=== PATIENT | male | born 1990 | race Caucasian/White ===

== ENCOUNTER → 2018-04-23 14:04 | Outpatient (CLI) | payer BC, OTHER, MEDICAID, SELFPAY ==
--- NOTE | 2018-04-23 | DI.RAD.S_ITS ---
PROCEDURE: XR CHEST 2V INDICATIONS: SHORTNESS OF BREATH TECHNIQUE: 2 views of the chest were acquired. COMPARISON: None. FINDINGS: Surgical changes and devices: Right supraclavicular surgical clip.. Lungs and pleura: No pleural effusions or pneumothorax. Elevation of the right hemidiaphragm and there is right basilar airspace opacity. Left lung is clear Mediastinum: Mediastinal contours are normal. Heart size is normal. Bones and chest wall: No suspicious bony abnormalities. Soft tissues appear unremarkable. IMPRESSION: Right basilar atelectasis versus aspiration or pneumonia. Correlate clinically. Dictated by: Hiro Knight [facility] Interpreted: Willow Tran MD on 04/23/2018 at 14:44 Approved by: Willow Tran M.D. on 04/23/2018 at 16:54
== END ==
PROVIDERS: Family Provider Internal Medicine; PCP Internal Medicine; Visit Provider Physician Assistant
DX: R06.02 Shortness of breath (principal)
CPT/HCPCS: 71046

== ENCOUNTER → 2018-04-30 09:22 | Outpatient (CLI) | payer BC, SELFPAY ==
--- NOTE | 2018-04-30 | DI.RAD.S_ITS ---
PROCEDURE: FL FLUOROSCOPY <1HR COMPARISON: [facility], CR, XR CHEST 2V, 04/23/2018, 13:55. INDICATIONS: 28-year-old male with history of significant right brachial plexus injury with subsequent surgeries and residual right upper extremity weakness, demonstrating asymmetrically elevated right hemidiaphragm on chest films FINDINGS: With deep patient inspiration, there is asymmetrically decreased inferior motion of the right hemidiaphragm compared with the left hemidiaphragm. With rapid patient inspiration (sniff), there is paradoxical superior motion of the right hemidiaphragm. 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 Findings were discussed with the patient at the time of examination. Dictated by: Thomas Bentley M.D. on 04/30/2018 at 10:27 Approved by: Thomas Bentley M.D. on 04/30/2018 at 10:30
== END ==
PROVIDERS: Family Provider Internal Medicine; PCP Internal Medicine; Visit Provider Physician Assistant
DX: J98.6 Disorders of diaphragm (principal)
CPT/HCPCS: 76001

== ENCOUNTER → 2018-08-28 16:49 | Outpatient (CLI) | payer BC, OTHER, MEDICAID, SELFPAY ==
--- NOTE | 2018-08-28 | DI.RAD.S_ITS ---
PROCEDURE: XR CHEST 2V INDICATIONS: DIAPHRAGM DISORDER TECHNIQUE: 2 views of the chest were acquired. COMPARISON: [facility], CR, XR CHEST 2V, 04/23/2018, 13:55. FINDINGS: Surgical changes and devices: Surgical clips are again noted in right axilla.. Lungs and pleura: No pleural effusions or pneumothorax. Right basilar scarring/atelectasis is again seen. Elevation of right hemidiaphragm is again noted. Mediastinum: Mediastinal contours are normal. Heart size is normal. Bones and chest wall: No suspicious bony abnormalities. Soft tissues appear unremarkable. IMPRESSION: Stable appearing right basilar scarring/atelectasis. No focal infiltrate or gross pneumothorax. Persistent elevation of right hemidiaphragm. Dictated by: Brandon Urbano M.D. on 08/28/2018 at 17:18 Approved by: Brandon Urbano M.D. on 08/28/2018 at 17:19
== END ==
PROVIDERS: Family Provider Internal Medicine; PCP Internal Medicine; Visit Provider Internal Medicine
DX: J98.6 Disorders of diaphragm (principal)
CPT/HCPCS: 71046

== ENCOUNTER → 2018-09-02 12:47 | Outpatient (CLI) | payer BC, OTHER, MEDICAID, SELFPAY ==
[2018-09-02 15:09] LABS: Urine N gonorrhoeae NOT DETECTED
[2018-09-02 15:15] LABS: Urine Chlamydia NOT DETECTED
[2018-09-02 19:08] LABS: HIV 1 and 2 Antibody NEGATIVE (NEGATIVE)
== END ==
PROVIDERS: PCP Internal Medicine; Visit Provider Internal Medicine
DX: Z20.2 Contact with and (suspected) exposure to infections with a predominantly sexual mode of transmission (principal)
CPT/HCPCS: 86703; 87491; 87591

== ENCOUNTER → 2018-11-11 10:07 | Outpatient (CLI) | payer BC, OTHER, MEDICAID, SELFPAY ==
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
== END ==
PROVIDERS: Family Provider Internal Medicine; PCP Internal Medicine; Visit Provider Internal Medicine
DX: R59.0 Localized enlarged lymph nodes (principal)
CPT/HCPCS: 76705

== ENCOUNTER → 2018-11-13 12:28 | Outpatient (CLI) | payer BC, OTHER, MEDICAID, SELFPAY ==
[2018-11-13 12:50] LABS: Hematocrit 45.4 % (41-53); Hemoglobin 15.9 g/dL (13.5-17.5); Mean Corpuscular Hemoglobin 31.2 PG (26-34); Mean Corpuscular Volume 89.1 fL (80-100); Platelet Count 332 X10^3/uL (150-400); Red Cell Distribution Width 11.6 % (11.6-14.8); White Blood Cell Count 8.5 X10^3/uL (4.5-11.0)
[2018-11-13 13:16] LABS: Alanine Aminotransferase 24 IU/L (21-72); Albumin 4.6 g/dL (3.5-5.0); Albumin Globulin Ratio 1.4 (1.0-2.8); Alkaline Phosphatase 81 U/L (38-126); Aspartate Aminotransferase 23 IU/L (17-59); Bilirubin Total 0.5 mg/dL (0.2-1.3); Blood Urea Nitrogen 14 mg/dL (9-20); Calcium 9.3 mg/dL (8.4-10.2); Carbon Dioxide 25 mmol/L (22-32); Chloride 99 mmol/L (98-107); Estimated Glomerular Filt Rate > 60.0 mL/min (>60); Globulin 3.2 g/dL (1.7-4.1); Glucose 100 mg/dL (70-100); HEMOLYSIS 16 (0-50); Lactate Dehydrogenase 616 U/L (313-618); Potassium 4.2 mmol/L (3.4-5.1); Sodium 138 mmol/L (137-145); Total Protein 7.8 g/dL (6.3-8.2)
[2018-11-13 14:22] LABS: Neutrophils Absolute Manual 5865 /uL (3000-5900); Total Cells Counted 100
[2018-11-13 14:23] LABS: RBC Morphology Normal Morphology
[2018-11-13 14:31] LABS: Urine N gonorrhoeae NOT DETECTED
[2018-11-13 16:54] LABS: Urine Chlamydia NOT DETECTED
== END ==
PROVIDERS: Family Provider Internal Medicine; PCP Internal Medicine; Visit Provider Internal Medicine
DX: R59.0 Localized enlarged lymph nodes (principal)
CPT/HCPCS: 36415; 80053; 83615; 85025; 87491; 87591

== ENCOUNTER → 2018-12-01 12:00 | Outpatient (CLI) | payer BC, OTHER, MEDICAID, SELFPAY | PROVIDERS: Family Provider Internal Medicine; PCP Internal Medicine; Visit Provider Internal Medicine | DX: G40.909 Epilepsy, unspecified, not intractable, without status epilepticus (principal) | CPT/HCPCS: 97802 ==

== ENCOUNTER → 2018-12-08 09:46 | Outpatient (CLI) | payer BC, OTHER, MEDICAID, SELFPAY | PROVIDERS: Family Provider Internal Medicine; PCP Internal Medicine; Visit Provider Family Medicine | DX: T22.311A Burn of third degree of right forearm, initial encounter (principal); X15.0XXA Contact with hot stove (kitchen), initial encounter | CPT/HCPCS: 16020; 99203; 99213 ==

== ENCOUNTER → 2018-12-16 14:14 | Outpatient (CLI) | payer BC, OTHER, SELFPAY | PROVIDERS: Family Provider Internal Medicine; PCP Internal Medicine; Visit Provider Family Medicine | DX: T22.311A Burn of third degree of right forearm, initial encounter (principal) | CPT/HCPCS: 16020 ==

== ENCOUNTER → 2018-12-23 09:48 | Outpatient (CLI) | payer BC, OTHER, SELFPAY | PROVIDERS: Family Provider Internal Medicine; PCP Internal Medicine; Visit Provider Family Medicine | DX: T22.311A Burn of third degree of right forearm, initial encounter (principal) | CPT/HCPCS: 16020; 99213 ==

== ENCOUNTER → 2018-12-24 13:33 | Outpatient (CLI) | payer BC, OTHER, MEDICAID, SELFPAY ==
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
== END ==
PROVIDERS: PCP Internal Medicine; Visit Provider Internal Medicine
DX: T14.8XXA Other injury of unspecified body region, initial encounter (principal); T30.0 Burn of unspecified body region, unspecified degree; G40.909 Epilepsy, unspecified, not intractable, without status epilepticus
CPT/HCPCS: 97803

== ENCOUNTER → 2018-12-30 10:03 | Outpatient (CLI) | payer BC, OTHER, MEDICAID, SELFPAY | PROVIDERS: PCP Internal Medicine; Visit Provider Family Medicine | DX: T23.311A Burn of third degree of right thumb (nail), initial encounter (principal) | CPT/HCPCS: 99212; 99213 ==

== ENCOUNTER 2019-04-14 15:30 | Outpatient (RCR) | payer BC, OTHER, SELFPAY, MEDICAID ==
--- NOTE | 2018-03-24 13:43 | ST.OPTN ---
On March 24, 2018 our therapy services consisting of Speech, Occupational, and Physical therapy transitioned from [employer] electronic documentation system to a new [employer] electronic system. All documentation prior to March 24 can be found under [employer] saved data. From March 24 forward, all medical record documentation will be in [employer] 6.1.
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
== END 2019-04-22 10:42 | disposition home or self-care (01) ==
LOC: SP 15:30
PROVIDERS: Family Provider Internal Medicine; PCP Internal Medicine; Visit Provider Physical Medicine & Rehabilitation
DX: S06.9X0A Unspecified intracranial injury without loss of consciousness, initial encounter (principal); G83.23 Monoplegia of upper limb affecting right nondominant side
CPT/HCPCS: 92507; 97127

== ENCOUNTER → 2019-09-01 14:35 | Outpatient (ROUT) | payer BC, OTHER, MEDICAID, SELFPAY ==
[2019-09-01 14:55] LABS: Add Manual Diff / Slide Review NO; Basophils Absolute Auto 100 /uL (0-100); Eosinophils Absolute Auto 0 /uL (0-450); Eosinophils Percent Auto 0.6 % (2-4); Hematocrit 50.4 % (41-53); Lymphocytes Absolute Auto 2100 /uL (1100-4500); Lymphocytes Percent Auto 31.8 % (25-40); Mean Corpuscular HGB Conc 33.6 % (30-36); Mean Corpuscular Volume 92.1 fL (80-100); Monocytes Absolute Auto 500 /uL (0-900); Monocytes Percent Auto 6.9 % (3-14); Neutrophils Absolute Auto 4000 /uL (1500-7000); Neutrophils Percent Auto 59.7 % (50-75); Platelet Count 285 X10^3/uL (150-400); Red Blood Cell Count 5.48 X10^6/uL (4.5-5.9); Red Cell Distribution Width 12.7 % (11.6-14.8); White Blood Cell Count 6.6 X10^3/uL (4.5-11.0)
[2019-09-01 15:01] LABS: Alanine Aminotransferase 20 IU/L (21-72); Albumin 4.9 g/dL (3.5-5.0); Albumin Globulin Ratio 1.6 (1.0-2.8); Alkaline Phosphatase 77 U/L (38-126); Aspartate Aminotransferase 26 IU/L (17-59); BUN Creatinine Ratio 22.9 (6-22); Bilirubin Total 0.6 mg/dL (0.2-1.3); Blood Urea Nitrogen 16 mg/dL (9-20); Calcium 10.4 mg/dL (8.4-10.2); Carbon Dioxide 30 mmol/L (22-32); Chloride 97 mmol/L (98-107); Cholesterol 264 mg/dL (140-199); Estimated Glomerular Filt Rate > 60.0 mL/min (>60); Glucose 97 mg/dL (70-100); HDL Cholesterol 28 mg/dL (40-60); HEMOLYSIS 24 (0-50); Potassium 5.1 mmol/L (3.4-5.1); Sodium 142 mmol/L (137-145); Total Protein 7.9 g/dL (6.3-8.2); Triglycerides 435 mg/dL (35-150)
[2019-09-01 15:32] LABS: Thyroid Stimulating Hormone 5.83 uIU/mL (0.47-4.68)
== END ==
PROVIDERS: Family Provider Internal Medicine; PCP Internal Medicine; Visit Provider Internal Medicine
DX: Z00.00 Encounter for general adult medical examination without abnormal findings (principal); E03.9 Hypothyroidism, unspecified; G40.802 Other epilepsy, not intractable, without status epilepticus
CPT/HCPCS: 80053; 80061; 84443; 85025

== ENCOUNTER 2019-10-01 07:30 | Outpatient (RCR) | payer BC, OTHER, MEDICAID, SELFPAY ==
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
== END 2019-10-08 12:35 ==
LOC: OT 07:30
PROVIDERS: Family Provider Internal Medicine; PCP Internal Medicine; Visit Provider Internal Medicine
DX: G83.23 Monoplegia of upper limb affecting right nondominant side (principal)
CPT/HCPCS: 97032; 97110; 97112; 97140; 97166; 97530

== ENCOUNTER → 2019-10-08 10:26 | Outpatient (CLI) | payer BC, OTHER, MEDICAID, SELFPAY ==
[2019-10-08 12:54] LABS: Cholesterol 283 mg/dL (140-199); HDL Cholesterol 28 mg/dL (40-60); LDL Cholesterol Calculated 202 mg/dL (<100); Triglycerides 263 mg/dL (35-150)
== END ==
PROVIDERS: Family Provider Internal Medicine; PCP Internal Medicine; Visit Provider Internal Medicine
DX: E78.5 Hyperlipidemia, unspecified (principal)
CPT/HCPCS: 36415; 80061

== ENCOUNTER 2019-10-19 08:15 | Outpatient (RCR) | payer BC, OTHER, MEDICAID, SELFPAY ==
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
--- NOTE | 2019-08-09 14:25 | PT-OP ANOTE ---
Patient cancelled PT appointment
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
== END 2020-02-09 08:23 ==
LOC: PHYS 08:15
PROVIDERS: Family Provider Internal Medicine; PCP Internal Medicine; Visit Provider Internal Medicine
DX: S06.9X0A Unspecified intracranial injury without loss of consciousness, initial encounter (principal); G83.23 Monoplegia of upper limb affecting right nondominant side
CPT/HCPCS: 97014; 97032; 97110; 97112; 97113; 97140; 97163; 97530; 97535; G0283

== ENCOUNTER → 2019-12-07 10:20 | Outpatient (CLI) | payer BC, OTHER, MEDICAID, SELFPAY ==
[2019-12-07 11:53] LABS: Cholesterol 257 mg/dL (140-199); Glucose 101 mg/dL (70-100); HDL Cholesterol 28 mg/dL (40-60); LDL Cholesterol Calculated 195 mg/dL (<100); Triglycerides 170 mg/dL (35-150)
== END ==
PROVIDERS: PCP Internal Medicine; Visit Provider Internal Medicine
DX: E78.2 Mixed hyperlipidemia (principal)
CPT/HCPCS: 36415; 80061; 82947

== ENCOUNTER → 2019-12-09 15:24 | Outpatient (ROUT) | payer BC, OTHER, MEDICAID, SELFPAY ==
[2019-12-09 16:13] LABS: TSH w/ Reflex to FT4 5.19 uIU/mL (0.47-4.68)
[2019-12-09 16:43] LABS: Free T4, Direct Thyroxine 1.23 ng/dL (0.78-2.19)
== END ==
PROVIDERS: PCP Internal Medicine; Visit Provider Internal Medicine
DX: E03.9 Hypothyroidism, unspecified (principal)
CPT/HCPCS: 84439; 84443

== ENCOUNTER → 2020-02-29 10:50 | Outpatient (CLI) | payer BC, OTHER, MEDICAID, SELFPAY | PROVIDERS: PCP Internal Medicine; Visit Provider Physician Assistant | DX: J02.9 Acute pharyngitis, unspecified (principal) | CPT/HCPCS: 87070 ==

== ENCOUNTER → 2020-06-28 15:40 | Outpatient (CLI) | payer BC, OTHER, MEDICAID, SELFPAY ==
[2020-06-28 17:07] LABS: Alanine Aminotransferase 18 IU/L (<50); Albumin 4.7 g/dL (3.5-5.0); Alkaline Phosphatase 57 U/L (38-126); Aspartate Aminotransferase 27 IU/L (17-59); BUN Creatinine Ratio 21.3 (6-22); Bilirubin Total 0.5 mg/dL (0.2-1.3); Blood Urea Nitrogen 17 mg/dL (9-20); Calcium 9.7 mg/dL (8.4-10.2); Carbon Dioxide 26 mmol/L (22-32); Chloride 103 mmol/L (98-107); Estimated Glomerular Filt Rate > 60.0 mL/min (>60); Globulin 2.4 g/dL (1.7-4.1); Glucose 89 mg/dL (70-100); HEMOLYSIS < 15 (0-50); Potassium 4.2 mmol/L (3.4-5.1); Sodium 138 mmol/L (137-145); Total Protein 7.1 g/dL (6.3-8.2)
[2020-06-28 17:38] LABS: TSH w/ Reflex to FT4 3.67 uIU/mL (0.47-4.68)
== END ==
PROVIDERS: PCP Registered Nurse Diabetes Educator; Referring Provider Registered Nurse Diabetes Educator; Visit Provider Registered Nurse Diabetes Educator
DX: E03.9 Hypothyroidism, unspecified (principal); R56.9 Unspecified convulsions
CPT/HCPCS: 36415; 80053; 84443

== ENCOUNTER → 2020-10-16 08:28 | Outpatient (CLI) | payer BC, OTHER, MEDICAID, SELFPAY ==
[2020-10-16 09:54] LABS: COVID19 -Nasal RAPID Negative (Negative)
== END ==
PROVIDERS: PCP Registered Nurse Diabetes Educator; Visit Provider Physician Assistant
DX: Z11.59 Encounter for screening for other viral diseases (principal)
CPT/HCPCS: 87635

== ENCOUNTER 2020-10-17 06:45 | Day surgery (SDC) | payer BC, OTHER, MEDICAID, SELFPAY ==
[2020-10-13 15:26] VITALS: BMI 27.3
[2020-10-17] VITALS (7 sets, daily range): BP systolic 104–120; BP diastolic 73–87; PULSE 67–80; RESP 12–16; TEMP 36.3–36.9; O2SAT 94–98; BMI 26.6
--- NOTE | 2020-10-17 07:29 | SUR.OPER ---
Supine on padded OR bed, head on pillow, right arm secured on padded arm boards at <90 degrees abduction, left arm prepped into field supported on arm table, legs uncrossed, safety belt at thigh, tape over blanket over lower legs.
[2020-10-17] MEDS: LACTATED RINGERS 1,000 ML 42 ML IV (07:30)
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
--- NOTE | 2020-10-17 07:42 | PM.PREOP ---
Pre-operative Note COVID-19 COVID-19 status: Negative Result date/Date tested (Pos, Neg/Pending): 10/15/20 Interval Note History & Physical reviewed/Exam performed by Physician: Yes Changes to H&P: No
[2020-10-17] MEDS: BUPIVACAINE 0.5% W/ EPI (PF) 30 ML VIAL INJ (08:06)
--- NOTE | 2020-10-17 09:40 | PM.OP.1 ---
Operative Date/Time/Diagnoses Date of procedure: 10/17/20 Time of procedure: 08:00 Pre-op diagnosis: Left de Quervain Post-op diagnosis: same Procedure & Clinicians Procedure: First extensor compartment release Same procedure as scheduled: Yes Indications: Left de Quervain Surgeon: Sai Cuadra Click Yes if Unassisted: Yes Anesthesia Type: MAC +/- (Local with sedation) Operative Notes Findings: Irritation of the extensor tendons in the 1st extensor compartment signs of tenosynovitis Closure Type: primary Specimen(s): none sent Estimated Blood Loss (mL): 0 Blood products transfused: none Tourniquet time (min): 11 Procedure in detail: On date of service, patient was met in the holding area. Operative site was signed and witnessed by the OR staff. The surgery once again discussed with patient and any remaining questions they had were answered fully. Patient was taken back to the operating theater and placed on the operating table in the supine position. Great care taken to ensure that all bony prominences were properly padded. A well-padded tourniquet was placed up along the upper extremity. A timeout was performed to verify patient's name, procedure, and operative site. The upper extremity was then prepped and draped in the normal sterile fashion. An Esmarch was used to exsanguinate the limb and the tourniquet was turned up to 250 mm mercury. A 15 blade was used to incise the skin only starting at the tip of the radial styloid and proceeding proximally about 2 cm. Pickups and tenotomy scissors were used to dissect down through the fascial tissue. Great care taken to ensure that the branches of the superficial radial nerve identified and protected. This gave us good visualization of the extensor sheath. The extensor sheath was released on the radial aspect. Inspection of the APL and EPB tendons was performed. Any tenosynovitis was removed. As well as any accessory slips. The wound was copiously irrigated. The wound was then closed and the hand was then cleaned, dried, and dressed. Patient was placed into a thumb spica splint and was taken to PACU in stable condition. Complications: none Post-operative Condition: stable Disposition: PACU Plan for aftercare: Patient will follow our postoperative protocol for 1st extensor compartment release.
== END 2020-10-17 09:34 | disposition home or self-care (01) ==
PROVIDERS: PCP Registered Nurse Diabetes Educator; Referring Provider Orthopaedic Surgery; Visit Provider Orthopaedic Surgery
PROC: (CPT 25000; principal; 2020-10-17 07:45)
DX: M65.4 Radial styloid tenosynovitis [de Quervain] (principal); E03.9 Hypothyroidism, unspecified; G40.909 Epilepsy, unspecified, not intractable, without status epilepticus
CPT/HCPCS: 25000; J2250; J2704

== ENCOUNTER → 2020-12-12 09:57 | Outpatient (CLI) | payer BC, OTHER, SELFPAY ==
[2020-12-12 10:59] LABS: Cholesterol 216 mg/dL (140-199); HDL Cholesterol 32 mg/dL (40-60); LDL Cholesterol Calculated 111 mg/dL (<100); Triglycerides 363 mg/dL (35-150)
== END ==
PROVIDERS: PCP Registered Nurse Diabetes Educator; Referring Provider Registered Nurse Diabetes Educator; Visit Provider Registered Nurse Diabetes Educator
DX: E78.5 Hyperlipidemia, unspecified (principal)
CPT/HCPCS: 36415; 80061

== ENCOUNTER 2021-02-16 07:30 | Outpatient (RCR) | payer BC, OTHER, MEDICAID, SELFPAY ==
--- NOTE | 2021-01-05 09:31 | OT.OP.EVAL ---
Visit Care Team Role Provider Type BEE Baez Attending Provider Advanced Investigator Cash Shortage Primary Care Provider Referring Provider Specialty: Medical Address: [address] [place] [address], [id number] Email: [email or web address] Occupational Therapy Initial Evaluation OT Outpatient Adult Evaluation Start: 01/05/21 07:36 Freq: Status: Active Protocol: Document 01/05/21 07:36 AMS (Rec: 01/05/21 08:00 AMS [id number]) General Information Visit Start Time 07:30 Visit Stop Time 08:15 Total Visit Minutes 45 Plan of Care Dates 01/05/21-02/16/21 Treatment Setting Outpatient Care Note Type Initial Evaluation Goals Treatment Education. Mcc Goals 1. Patient will be modified independent with distal left upper extremity program utilizing provided written and visual instructions from therapist. 2. Patient will be able to actively participate in meaningful activities secondary to reduction in pain /discomfort of distal left upper extremity; this will be evidenced by patient indicating 2 or less out of 10 relative to distal left upper extremity pain on Pain Assessment Grid. Assessment/Plan Treatment Assessment Carmelo is a 30 year-old left hand dominant male referred to outpatient OT secondary L DeQuervain's surgery by his primary care physician Quinn Mcgowan MD. Carmelo reported that he had surgery on October 17 for L DeQuervain 's. Surgery was performed by Dr. Cuadra. He stated that cast was removed October 30 and that he was evaluated by [facility] on October 31. Unfortunately, Carmelo's insurance is no longer being covered by [facility]. At time of evaluation, he was instructed to wear brace 2 to 4 weeks and complete finger taps and finger slides, thumb over top of index finger w/ UD stretch. He has had no follow-up therapy since October 31, 2020. He will be seeing Dr. Cuadra January 09 for follow-up appointment. Patient Goals: Address pain/ discomfort; improve upon functional abilities. Evaluation Findings: Carmelo was not wearing post-surgical brace at time of evaluation. Mild swelling at site of surgery. Mild scar tissue. Some numbness at site of scar; no pain discomfort w/ touch. Denied infection at site of surgery. 0-60 degrees active L wrist flexion. 0-72 degrees active L wrist extension w/ mild discomfort. 0-[address] w/ mild discomfort . 0-30 degrees of wrist UD. 0- 60 degrees L thumb abduction. Tightness of L thumb adductor. Indicated 5 out of 10 on Pain Assessment Grid relative to L thumb. QuickDash UE Outcome Measure completed by Carmelo; he obtained a score of 47.7. Outpatient OT would likely be beneficial given continued c/o pain/discomfort and decreased functional abilities with dominant hand. Comment 6 weeks Treatment Frequency Once a Week Therapeutic Contents Active Range of Motion, Adaptive Equipment Education, Client Education,Home Exercise Program,Joint Protection, Manual Therapy,Self-Care, Stretching/Flexibility Activities,Therapeutic Activities,Therapeutic Exercises,Modalities Modalities As Needed,As Prescribed Additional Types of Modalities Ultrasound, paraffin, heat, cold
--- NOTE | 2021-01-05 10:22 | OT.OP.TRT ---
Visit Care Team Role Provider Type BEE Baez Attending Provider Advanced Regulatory Law Specialist Primary Care Provider Referring Provider Specialty: Medical Address: [address] [place] [address], [id number] Email: [email or web address] Occupational Therapy Treatment Note OT Outpatient Treatment Note - Adult Start: 01/05/21 07:36 Freq: Status: Active Protocol: Document 01/05/21 10:20 AMS (Rec: 01/05/21 10:22 AMS [id number]) OT Outpatient Adult Treatment Note Visit Information Plan of Care Dates 01/05/21-02/16/21 Setting Treatment Setting Outpatient Care Visit Type Note Type Administrative Note - Subjective Observations Faxed orthopedic surgeon re: request for pertinent medical records relative to DeQuervain 's surgery; included signed consent for exchange of information completed by patient. Therapist to follow- up as appropriate. - - - -
--- NOTE | 2021-01-12 15:30 | OT.OP.TRT ---
Visit Care Team Role Provider Type BEE Baez Attending Provider Advanced Clinical Program Manager Primary Care Provider Referring Provider Specialty: Medical Address: [address] [place] [address], [facility] Email: [email or web address] Occupational Therapy Treatment Note OT Outpatient Treatment Note - Adult Start: 01/05/21 07:36 Freq: Status: Active Protocol: Document 01/12/21 15:09 AMS (Rec: 01/12/21 15:23 AMS [id number]) OT Outpatient Adult Treatment Note Session Time Visit Start Time 07:40 Visit Stop Time 08:20 Total Visit Minutes 40 Visit Information Plan of Care Dates 01/05/21-02/16/21 Setting Treatment Setting Outpatient Care Visit Type Note Type Treatment Note General Information General Information Carmelo is a 30 year-old left hand dominant male referred to outpatient OT secondary L DeQuervain's surgery by his primary care physician Eloise Mcgowan MD. Carmelo reported that he had surgery on October 17 for L DeQuervain 's. Surgery was performed by Dr. Cuadra. He stated that cast was removed October 30 and that he was evaluated by IR on October 31. Unfortunately, Carmelo's insurance is no longer being covered by [facility]. At time of evaluation, he was instructed to wear brace 2 to 4 weeks and complete finger taps and finger slides, thumb over top of index finger w/ UD stretch. He has had no follow-up therapy since October 31, 2020. He will be seeing Dr. Cuadra January 09 for follow-up appointment. - Subjective Identification Type Name Identification Reconciled With Medical Record Observations I think that I had the papers from the doctor on the dash of my car. It has been a long week. I have been taking the oral steroids that were recommended per Carmelo. Medical Documentation was reviewed post treatment session d/t time of receipt. Follow-up appointment with Dr. Cuadra on 01/09/21 indicated the following: Patient with signs of possible compression of superficial branches of the radial nerve. No signs of recurring DeQuervain's. Recommend thumb spica bracing at nighttime as well as hand therapy. Recommendation for short course of oral steroids to address any swelling and irritation at wrist level. - Objective Objective Measurements Impaired cognition; impaired executive function abilities. Please refer to below for progress towards meeting established OT goals. 06/17/19= (+) ability to stabilize wood block seated at TT w/ R hand positioned on top for L hand manipulation. Residential Substance Abuse Counselor Goals 1. Patient will be modified independent with distal left upper extremity program utilizing provided written and visual instructions from therapist. 2. Patient will be able to actively participate in meaningful activities secondary to reduction in pain /discomfort of distal left upper extremity; this will be evidenced by patient indicating 2 or less out of 10 relative to distal left upper extremity pain on Pain Assessment Grid. - Treatment 2 Descriptor Manual treatment. 1 Descriptor Ultrasound. 20% duty cycle. 2. 0 w/cm2 to site of swelling. Skin intact pre- and post- treatment. Exercises 10 Descriptor Wrist UD/RD Forearm supination w/ proximal blocking w/ UD Forearm pronation w/ proximal blocking w/ RD (trace) Side Right Body Position Sitting Sets 1 Repetitions 10 - Assessment Assessment of Improvement Medical Documentation was reviewed post treatment session d/t time of receipt. Follow-up appointment with Dr. Cuadra on 01/09/21 indicated the following: Patient with signs of possible compression of superficial branches of the radial nerve. No signs of recurring DeQuervain's. Recommend thumb spica bracing at nighttime as well as hand therapy. Recommendation for short course of oral steroids to address any swelling and irritation at wrist level. At time of treatment session, patient denied use of brace. ( +) report of taking medication as prescribed by Dr. Cuadra. (+) swelling w/ positive reduction post- ultrasound modality application. - Plan Therapy Recommendations Continue with Current Program, Advance per Rehabilitation Protocol
--- NOTE | 2021-01-19 11:40 | OT.OP.TRT ---
Visit Care Team Role Provider Type BEE Baez Attending Provider Advanced Systems Security Consultant Primary Care Provider Referring Provider Specialty: Medical Address: [address] [place] [address], [facility] Email: [email or web address] Occupational Therapy Treatment Note OT Outpatient Treatment Note - Adult Start: 01/05/21 07:36 Freq: Status: Active Protocol: Document 01/19/21 11:23 AMS (Rec: 01/19/21 11:40 AMS [id number]) OT Outpatient Adult Treatment Note Session Time Visit Start Time 07:35 Visit Stop Time 08:15 Total Visit Minutes 40 Visit Information Plan of Care Dates 01/05/21-02/16/21 Setting Treatment Setting Outpatient Care Visit Type Note Type Treatment Note General Information General Information Carmelo is a 30 year-old left hand dominant male referred to outpatient OT secondary L DeQuervain's surgery by his primary care physician Eloise Mcgowan MD. Carmelo reported that he had surgery on October 17 for L DeQuervain 's. Surgery was performed by Dr. Cuadra. He stated that cast was removed October 30 and that he was evaluated by [facility] on October 31. Unfortunately, Carmelo's insurance is no longer being covered by [facility]. At time of evaluation, he was instructed to wear brace 2 to 4 weeks and complete finger taps and finger slides, thumb over top of index finger w/ UD stretch. He has had no follow-up therapy since October 31, 2020. He will be seeing Dr. Cuadra January 09 for follow-up appointment. - Subjective Identification Type Name Identification Reconciled With Medical Record Observations I did take the medication for the duration of 6 days. It has started to feel better per Carmelo. No I have not been wearing the splint at night per Carmelo. Medical Documentation was reviewed post treatment session d/t time of receipt. Follow-up appointment with Dr. Cuadra on 01/09/21 indicated the following: Patient with signs of possible compression of superficial branches of the radial nerve. No signs of recurring DeQuervain's. Recommend thumb spica bracing at nighttime as well as hand therapy. Recommendation for short course of oral steroids to address any swelling and irritation at wrist level. - Objective Objective Measurements Please refer to below for progress towards meeting established OT goals. Jewelry Facer Goals 1. Patient will be modified independent with distal left upper extremity program utilizing provided written and visual instructions from therapist. 2. Patient will be able to actively participate in meaningful activities secondary to reduction in pain /discomfort of distal left upper extremity; this will be evidenced by patient indicating 2 or less out of 10 relative to distal left upper extremity pain on Pain Assessment Grid. - Treatment 2 Descriptor Manual treatment. 1 Descriptor Ultrasound. 20% duty cycle. 2. 0 w/cm2 to site of swelling. Treatment duration x 8 minutes . Skin intact pre- and post- treatment. - Assessment Assessment of Improvement (-) use of nighttime brace; reviewed recommendations from referring physician. Report of reduced pain/discomfort since time of previous treatment session. Mild swelling. Introduced radial nerve glide; recommended use of ice at home for swelling management. Some progress is being made. - Plan Therapy Recommendations Continue with Current Program, Advance per Rehabilitation Protocol
--- NOTE | 2021-01-26 15:30 | OT.OP.TRT ---
Visit Care Team Role Provider Type BEE Baez Attending Provider Advanced Overhead Crane Inspector Primary Care Provider Referring Provider Specialty: Medical Address: [address] [place] [address], [facility] Email: [email or web address] Occupational Therapy Treatment Note OT Outpatient Treatment Note - Adult Start: 01/05/21 07:36 Freq: Status: Active Protocol: Document 01/26/21 15:30 AMS (Rec: 01/29/21 10:30 AMS [id number]) OT Outpatient Adult Treatment Note Session Time Visit Start Time 07:35 Visit Stop Time 08:15 Total Visit Minutes 40 Visit Information Plan of Care Dates 01/05/21-02/16/21 Setting Treatment Setting Outpatient Care Visit Type Note Type Treatment Note General Information General Information Carmelo is a 30 year-old left hand dominant male referred to outpatient OT secondary L DeQuervain's surgery by his primary care physician Eloise Mcgowan MD. Carmelo reported that he had surgery on October 17 for L DeQuervain 's. Surgery was performed by Dr. Cuadra. He stated that cast was removed October 30 and that he was evaluated by IR on October 31. Unfortunately, Carmelo's insurance is no longer being covered by [facility]. At time of evaluation, he was instructed to wear brace 2 to 4 weeks and complete finger taps and finger slides, thumb over top of index finger w/ UD stretch. He has had no follow-up therapy since October 31, 2020. He will be seeing Dr. Cuadra January 09 for follow-up appointment. - Subjective Identification Type Name Identification Reconciled With Medical Record Observations I still haven't found the brace to wear at night per Carmelo. I cleaned up my kitchen but it wasn't in there . Medical Documentation was reviewed post treatment session d/t time of receipt. Follow-up appointment with Dr. Cuadra on 01/09/21 indicated the following: Patient with signs of possible compression of superficial branches of the radial nerve. No signs of recurring DeQuervain's. Recommend thumb spica bracing at nighttime as well as hand therapy. Recommendation for short course of oral steroids to address any swelling and irritation at wrist level. Patient/Caregiver Compliance with Home Good Exercise Program - Objective Objective Measurements Please refer to below for progress towards meeting established OT goals. Halfway Goals 1. Patient will be modified independent with distal left upper extremity program utilizing provided written and visual instructions from therapist. 2. Patient will be able to actively participate in meaningful activities secondary to reduction in pain /discomfort of distal left upper extremity; this will be evidenced by patient indicating 2 or less out of 10 relative to distal left upper extremity pain on Pain Assessment Grid. - Treatment 2 Descriptor Manual treatment. 1 Descriptor Ultrasound. 20% duty cycle. 2. 0 w/cm2 to site of swelling. Treatment duration x 8 minutes . Skin intact pre- and post- treatment. - Assessment Assessment of Improvement Report of reduction of pain symptoms since beginning of treatment. Has still not found night brace for distal R UE in the home; actively searching in the home for brace. Discussed insurance limitations; with patient feedback reduced frequency of treatment based on insurance limitations and feedback from patient. Instructed in basic wrist stretches utilizing table in conjunction with other exercises (hand, and nerve glide). Based on reduction of symptoms progress is being made; will need to monitor for exacerbation of symptoms at this time. Recommend transitioning to [facility] as able. - Plan Additional Therapy Recommendations Reduce frequency of treatment d/t insurance limitations/ progress
--- NOTE | 2021-02-16 08:20 | OT.OP.DC ---
Visit Care Team Role Provider Type BEE Baez Attending Provider Advanced [employer] R12 Developer Primary Care Provider Referring Provider Address: [address] [place] [address], [id number] Email: [email or web address] Outpatient OT Outpatient Adult Evaluation Start: 01/05/21 07:36 Freq: Status: Active Protocol: Document 01/05/21 07:36 AMS (Rec: 01/05/21 08:00 AMS [id number]) General Information Session Time Visit Start Time 07:30 Visit Stop Time 08:15 Total Visit Minutes 45 Visit Information Plan of Care Dates 01/05/21-02/16/21 Setting Treatment Setting Outpatient Care Visit Type Note Type Initial Evaluation Goals Treatment Treatment Education. House Registry Rn Goals House Registry Rn Goals 1. Patient will be modified independent with distal left upper extremity program utilizing provided written and visual instructions from therapist. 2. Patient will be able to actively participate in meaningful activities secondary to reduction in pain /discomfort of distal left upper extremity; this will be evidenced by patient indicating 2 or less out of 10 relative to distal left upper extremity pain on Pain Assessment Grid. Assessment/Plan Assessment Treatment Assessment Carmelo is a 30 year-old left hand dominant male referred to outpatient OT secondary L DeQuervain's surgery by his primary care physician Quinn Mcgowan MD. Carmelo reported that he had surgery on October 17 for L DeQuervain 's. Surgery was performed by Dr. Cuadra. He stated that cast was removed October 30 and that he was evaluated by [facility] on October 31. Unfortunately, [employer] insurance is no longer being covered by [facility]. At time of evaluation, he was instructed to wear brace 2 to 4 weeks and complete finger taps and finger slides, thumb over top of index finger w/ UD stretch. He has had no follow-up therapy since October 31, 2020. He will be seeing Dr. Cuadra January 09 for follow-up appointment. Patient Goals: Address pain/ discomfort; improve upon functional abilities. Evaluation Findings: Carmelo was not wearing post-surgical brace at time of evaluation. Mild swelling at site of surgery. Mild scar tissue. Some numbness at site of scar; no pain discomfort w/ touch. Denied infection at site of surgery. 0-60 degrees active L wrist flexion. 0-72 degrees active L wrist extension w/ mild discomfort. 0-[address] w/ mild discomfort . 0-30 degrees of wrist UD. 0- 60 degrees L thumb abduction. Tightness of L thumb adductor. Indicated 5 out of 10 on Pain Assessment Grid relative to L thumb. QuickD[employer] UE Outcome Measure completed by Carmelo; he obtained a score of 47.7. Outpatient OT would likely be beneficial given continued c/o pain/discomfort and decreased functional abilities with dominant hand. Plan Comment 6 weeks Treatment Frequency Once a Week Therapeutic Contents Active Range of Motion, Adaptive Equipment Education, Client Education,Home Exercise Program,Joint Protection, Manual Therapy,Self-Care, Stretching/Flexibility Activities,Therapeutic Activities,Therapeutic Exercises,Modalities Modalities As Needed,As Prescribed Additional Types of Modalities Ultrasound, paraffin, heat, cold Sensory Assessment Sensory Profile2 Functional Wrist/Hand Scan Hand Side OT Outpatient Treatment Note - Adult Start: 01/05/21 07:36 Freq: Status: Active Protocol: Document 02/16/21 07:33 AMS (Rec: 02/16/21 08:19 AMS [id number]) OT Outpatient Adult Treatment Note Session Time Visit Start Time 07:30 Visit Stop Time 08:10 Total Visit Minutes 40 Visit Information Plan of Care Dates 01/05/21-02/16/21 Setting Treatment Setting Outpatient Care Visit Type Note Type Treatment Note General Information General Information Carmelo is a 30 year-old left hand dominant male referred to outpatient OT secondary L DeQuervain's surgery by his primary care physician Quinn Mcgowan MD. Carmelo reported that he had surgery on October 17 for L DeQuervain 's. Surgery was performed by Dr. Cuadra. He stated that cast was removed October 30 and that he was evaluated by [facility] on October 31. Unfortunately, Carmelo's insurance is no longer being covered by [facility]. At time of evaluation, he was instructed to wear brace 2 to 4 weeks and complete finger taps and finger slides, thumb over top of index finger w/ UD stretch. He has had no follow-up therapy since October 31, 2020. He will be seeing Dr. Cuadra January 09 for follow-up appointment. - Subjective Identification Type Name Identification Reconciled With Medical Record Observations Carmelo completed Pain Assessment Grid; he indicated 1 out of 10 on Pain Scale relative to distal L UE pain. Medical Documentation was reviewed post treatment session d/t time of receipt. Follow-up appointment with Dr. Cuadra on 01/09/21 indicated the following: Patient with signs of possible compression of superficial branches of the radial nerve. No signs of recurring DeQuervain's. Recommend thumb spica bracing at nighttime as well as hand therapy. Recommendation for short course of oral steroids to address any swelling and irritation at wrist level. Patient/Caregiver Compliance with Home Good Exercise Program - Objective Objective Measurements Please refer to below for progress towards meeting established OT goals. Long-Term Goals ALL GOALS MET 02/16/21 Patient will be modified independent with distal left upper extremity program utilizing provided written and visual instructions from therapist. Patient will be able to actively participate in meaningful activities secondary to reduction in pain /discomfort of distal left upper extremity; this will be evidenced by patient indicating 2 or less out of 10 relative to distal left upper extremity pain on Pain Assessment Grid. - Treatment 2 Descriptor Manual treatment. 1 Descriptor Ultrasound. 20% duty cycle. 2. 0 w/cm2 to site of swelling. Treatment duration x 8 minutes . Skin intact pre- and post- treatment. - Assessment Assessment of Improvement Carmelo has met all goals for outpatient OT. He is modified independent with execution of home exercise program; he is utilizing compression sleeve to assist w/ swelling management. He is able to execute distal UE ROM exercises without cueing. Thus , recommend d/c to [facility] at this time. - Plan Therapy Recommendations Discharge from Occupational Therapy Additional Therapy Recommendations Reduce frequency of treatment d/t insurance limitations/ progress
== END 2021-02-16 10:03 | disposition home or self-care (01) ==
LOC: OT 07:30
PROVIDERS: PCP Registered Nurse Diabetes Educator; Referring Provider Registered Nurse Diabetes Educator; Visit Provider Registered Nurse Diabetes Educator
DX: M65.4 Radial styloid tenosynovitis [de Quervain] (principal); R53.1 Weakness
CPT/HCPCS: 97035; 97110; 97140; 97165

== ENCOUNTER → 2021-05-16 11:31 | Outpatient (CLI) | payer BC, OTHER, MEDICAID, SELFPAY ==
[2021-05-16 12:15] LABS: Hematocrit 45.5 % (41-53); Hemoglobin 15.7 g/dL (13.5-17.5); Mean Corpuscular HGB Conc 34.4 % (30-36); Mean Corpuscular Hemoglobin 31.6 PG (26-34); Mean Corpuscular Volume 91.7 fL (80-100); Platelet Count 239 X10^3/uL (150-400); Red Blood Cell Count 4.96 X10^6/uL (4.5-5.9); Red Cell Distribution Width 12.2 % (11.6-14.8)
[2021-05-16 12:30] LABS: Alanine Aminotransferase 33 IU/L (<50); Albumin 4.9 g/dL (3.5-5.0); Albumin Globulin Ratio 1.5 (1.0-2.8); Alkaline Phosphatase 63 U/L (38-126); Aspartate Aminotransferase 39 IU/L (17-59); BUN Creatinine Ratio 17.5 (6-22); Bilirubin Total 0.6 mg/dL (0.2-1.3); Blood Urea Nitrogen 14 mg/dL (9-20); Carbon Dioxide 29 mmol/L (22-32); Chloride 101 mmol/L (98-107); Estimated Glomerular Filt Rate > 60.0 mL/min (>60); Globulin 3.3 g/dL (1.7-4.1); Glucose 94 mg/dL (70-100); HEMOLYSIS 33 (0-50); Potassium 4.7 mmol/L (3.4-5.1); Sodium 139 mmol/L (137-145); Total Protein 8.2 g/dL (6.3-8.2)
[2021-05-16 13:01] LABS: TSH w/ Reflex to FT4 7.46 uIU/mL (0.47-4.68)
[2021-05-16 19:20] LABS: Free T4, Direct Thyroxine 1.07 ng/dL (0.78-2.19)
== END ==
PROVIDERS: PCP Registered Nurse Diabetes Educator; Referring Provider Registered Nurse Diabetes Educator; Visit Provider Registered Nurse Diabetes Educator
DX: E03.9 Hypothyroidism, unspecified (principal); R56.9 Unspecified convulsions
CPT/HCPCS: 36415; 80053; 84439; 84443; 85027

== ENCOUNTER 2021-05-30 09:00 | Outpatient (RCR) | payer BC, OTHER, MEDICAID, SELFPAY ==
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
--- NOTE | 2021-03-07 12:56 | PT.OPPOC ---
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 Plan Of Care PT-OP-T Assessment and Plan Start: 12/20/20 11:25 Freq: Status: Active Protocol: Document 03/07/21 09:45 AW (Rec: 03/07/21 09:48 AW [id number]) Physical Therapy Assessment Goals Seven Impairment need for better brace right UE Customer Accounts Advisor Goal (LTG) Patient to obtain new right UE brace to allow his right arm to be in functional position and available to use with ADL' s as able. 03/07/21 - Considering hand/ wrist splint but has not purchased yet. LTG Duration 3 months - 06/13/21 Six Impairment Decreased ability to use compensatory motion for functional use Customer Accounts Advisor Goal (LTG) Patient will implement functional compensatory strategies for ADL's. LTG Duration 3 months - 06/13/21 Four Impairment Lacking HEP Short Term Goal (STG) Instruct in HEP for right UE ROM and strengthening for support of therapy services provided in clinic STG Duration 01/31/21 Customer Accounts Advisor Goal (LTG) Patient to be independent in and compliant with exercise program 03/07/21 - GOAL MET, incorporating exercises into daily routine. LTG Duration 03/14/21 Two Impairment ROM right shoulder Short Term Goal (STG) Improve right shoulder ROM all motions by 50% (goal progress ) STG Duration 01/31/21 Customer Accounts Advisor Goal (LTG) Improve right shoulder ROM to WFL 03/07/21: abd 90 ff 115 LTG Duration 3 months - 06/13/21 One Impairment Strength/Function Short Term Goal (STG) Facilitate active movement of right UE musculature STG Duration 01/31/21 Longterm Goal (LTG) Patient able to use right UE for some gross functional tasks 03/07/21 - PROGRESSING LTG Duration 3 months - 06/13/21 Progress Towards Goals Progress Towards Goals Progressing Toward Goals,Slow Progress - Other Progress Comments Pt has slowly increased compliance with HEP and now presents with his who will be able to further assist with home exercise. He has made some gains with ROM, scapular control, and functional movements with compensation. He is a good candidate for continued therapy for progression toward goals. Assessment Summary Assessment Pt's participated in training at this session with emphasis on assisting to control humeral translation and to provide appropriate cues for shoulder/scapular posture. She was able to assist with forearm plank in modified plantigrade position. She will attend at least one additional session for further training. Physical Therapy Plan Frequency and Duration Frequency of Treatment 2x/Week Duration of Treatment 3 months Plan of Care Start Date 03/14/21 Plan of Care End Date 06/13/21 Therapeutic Interventions Therapeutic Interventions Home Exercise Program,Manual Therapy,Neuromuscular Re- education,Patient/Caregiver Education,Self-Care/Home Management,Soft Tissue Mobilization,Therapeutic Exercises Modalities Electric Stimulation Other Therapeutic Interventions functional e-stim Next Visit Focus/Plan Next Note Type Treatment Note Next Visit Plan Use mirror for exercises so pt can begin to self correct with less tactile cues. Begin caregiver training with on Wednesdays. Continue PROM RUE all planes and following POC for strengthening R shld Plan of Care Dates Plan of Care Start Date 03/14/21 Plan of Care End Date 06/13/21 Electronically Signed by: Krystle Thurman PT 03/07/21 [id number] Please Sign and Return: I have reviewed this Plan of Care and certify that the skilled therapy services above are required to meet the patient?s needs. Physician Signature Date Printed Name and Credentials Clinical Instructor Signature Printed Name and Credentials
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
== END 2021-05-30 12:36 | disposition home or self-care (01) ==
LOC: PHYS 09:00
PROVIDERS: Family Provider Registered Nurse Diabetes Educator; PCP Registered Nurse Diabetes Educator; Referring Provider Registered Nurse Diabetes Educator; Visit Provider Registered Nurse Diabetes Educator
DX: G83.21 Monoplegia of upper limb affecting right dominant side (principal)
CPT/HCPCS: 97110; 97112; 97140; 97163; 97530; 97535; 97760

== ENCOUNTER → 2021-06-19 17:34 | Outpatient (CLI) | payer BC, OTHER, MEDICAID, SELFPAY ==
--- NOTE | 2021-06-19 | DI.MRI.S_ITS ---
PROCEDURE: MR WRIST LT WO CON INDICATIONS: Radial styloid tenosynovitis TECHNIQUE: Noncontrast coronal proton density fast spin echo and T2 fast spin echo with fat saturation; coronal 3-D gradient echo, axial T1 spin echo and T2 fast spin echo with fat saturation, sagittal T1 spin echo through the wrist. COMPARISON: None. FINDINGS: Image quality: Excellent. Bones and cartilage: The carpal bones are normally aligned. No bone marrow contusions or fractures. No evidence for avascular necrosis. Overlying cartilage surfaces appear normal. Carpal ligaments: The scapholunate and lunotriquetral ligaments appear intact. In the absence of intra-articular contrast, the extrinsic carpal ligaments are not well identified. On sagittal images, the pisohamate ligament appears intact. Triangular fibrocartilage complex: The triangular fibrocartilage appears intact. The adjacent meniscal homolog appears normal in the absence of intra-articular contrast. The extensor carpi ulnaris tendon is normal in location and morphology. Tendons and soft tissues: There is thickening of the extensor pollicis brevis and adductor pollicis longus tendons at the level of distal radius/radial styloid with mild surrounding soft tissue edema suggestive of tendinosis/low-grade partial-thickness tear. No significant fluid distension of the tendon sheath is seen. The carpal tunnel structures appear normal, including the median nerve. The ulnar nerve appears normal within Guyon's canal. Rest of the extensor tendon compartments demonstrate normal morphology, without pathologic tendon sheath fluid. There is a 6 x 6 x 7 mm cystic area involving volar and ulnar aspect of wrist just distal to the ulnar styloid and is suggestive of a small ganglion cyst. IMPRESSION: 1. Tendinosis and low-grade intrasubstance partial-thickness tear involving extensor pollicis brevis and adductor pollicis longus tendons at the level of distal radius/radial styloid. No significant fluid distension of the tendon sheath. Rest of the extensor and flexor tendons are grossly intact. 2. Intrinsic and extrinsic wrist ligaments are intact. 3. Triangular fibrocartilage complex is within normal limits. 4. Suggestion of a 6 x 6 x 7 mm ganglion cyst in volar and ulnar aspect of wrist soft tissue just distal to ulnar styloid tip. Dictated by: Brandon Urbano M.D. on 06/20/2021 at 9:00 Approved by: Brandon Urbano M.D. on 06/20/2021 at 9:04
== END ==
PROVIDERS: PCP Registered Nurse Diabetes Educator; Referring Provider Orthopaedic Surgery; Visit Provider Orthopaedic Surgery
DX: M65.4 Radial styloid tenosynovitis [de Quervain] (principal); S56.512A Strain of other extensor muscle, fascia and tendon at forearm level, left arm, initial encounter
CPT/HCPCS: 73221

== ENCOUNTER → 2021-08-07 14:18 | Outpatient (CLI) | payer BC, OTHER, MEDICAID, SELFPAY | PROVIDERS: PCP Registered Nurse Diabetes Educator; Referring Provider Registered Nurse Diabetes Educator; Visit Provider Registered Nurse Diabetes Educator | DX: E03.9 Hypothyroidism, unspecified (principal) | CPT/HCPCS: 36415; 84439; 84443 ==

== ENCOUNTER → 2021-10-25 14:32 | Outpatient (CLI) | payer BC, OTHER, MEDICAID, SELFPAY ==
[2021-10-25 16:43] LABS: TSH w/ Reflex to FT4 8.28 uIU/mL (0.47-4.68)
[2021-10-25 17:13] LABS: Free T4, Direct Thyroxine 0.96 ng/dL (0.78-2.19)
== END ==
PROVIDERS: PCP Registered Nurse Diabetes Educator; Referring Provider Registered Nurse Diabetes Educator; Visit Provider Registered Nurse Diabetes Educator
DX: E03.9 Hypothyroidism, unspecified (principal)
CPT/HCPCS: 36415; 84439; 84443

== ENCOUNTER → 2021-12-14 11:49 | Outpatient (CLI) | payer MEDICARE, BC, MEDICAID, SELFPAY ==
[2021-12-14 13:04] LABS: TSH w/ Reflex to FT4 7.38 uIU/mL (0.47-4.68)
[2021-12-14 14:34] LABS: Free T4, Direct Thyroxine 0.86 ng/dL (0.78-2.19)
== END ==
PROVIDERS: PCP Registered Nurse Diabetes Educator; Referring Provider Registered Nurse Diabetes Educator; Visit Provider Registered Nurse Diabetes Educator
DX: E03.9 Hypothyroidism, unspecified (principal)
CPT/HCPCS: 36415; 84439; 84443

== ENCOUNTER → 2022-02-28 14:31 | Outpatient (CLI) | payer MEDICARE, BC, MEDICAID, SELFPAY ==
[2022-02-28 16:38] LABS: TSH w/ Reflex to FT4 5.57 uIU/mL (0.47-4.68)
[2022-02-28 17:13] LABS: Free T4, Direct Thyroxine 1.06 ng/dL (0.78-2.19)
== END ==
PROVIDERS: PCP Registered Nurse Diabetes Educator; Referring Provider Registered Nurse Diabetes Educator; Visit Provider Registered Nurse Diabetes Educator
DX: E03.9 Hypothyroidism, unspecified (principal)
CPT/HCPCS: 36415; 84439; 84443

== ENCOUNTER → 2022-05-15 09:49 | Outpatient (CLI) | payer MEDICARE, BC, MEDICAID, SELFPAY ==
[2022-05-15 11:15] LABS: TSH w/ Reflex to FT4 6.78 uIU/mL (0.47-4.68)
[2022-05-16 21:00] LABS: Free T4, Direct Thyroxine 1.42 ng/dL (0.78-2.19)
== END ==
PROVIDERS: PCP Registered Nurse Diabetes Educator; Referring Provider Registered Nurse Diabetes Educator; Visit Provider Registered Nurse Diabetes Educator
DX: E03.9 Hypothyroidism, unspecified (principal)
CPT/HCPCS: 36415; 84439; 84443